=== PATIENT | female | born 1995 | race Caucasian/White ===

== ENCOUNTER 2022-01-05 18:57 | Emergency (ER) | payer OTHER ==
[~2022-01-05 18:57] MED LIST: FLOMAX 0.4 MG0.4 MG PO; MACROBID 100 M100 MG PO
[2022-01-05 19:50] LABS: HEMOGLOBIN 13.3 gm/dl (12.3-15.3); RED BLOOD COUNT 4.61 M/UL (4.00-5.10); WHITE BLOOD COUNT 11.2 K/UL (4.5-11.0)
[2022-01-05 20:21] LABS: BUN/CREATININE RATIO 16 (0-10)
== END 2022-01-06 01:00 | disposition left against medical advice (07) ==
LOC: ER1 18:57
PROVIDERS: Nurse Practitioner
DX: R51.9 Headache, unspecified (principal); R07.9 Chest pain, unspecified; Z90.89 Acquired absence of other organs; Z88.8 Allergy status to other drugs, medicaments and biological substances; F17.210 Nicotine dependence, cigarettes, uncomplicated; Z20.822 Contact with and (suspected) exposure to COVID-19
CPT/HCPCS: 0240U; 71045; 80053; 81001; 82550; 82553; 84484; 85025; 93005; 99283